=== PATIENT | female | born 1995 | race African-American/Black ===

== ENCOUNTER 2018-03-01 09:48 | Day surgery (SDC) | payer SELFPAY ==
[2018-02-27 16:02] VITALS: BMI 31.0
[2018-03-01] MEDS ORDERED: EPINEPHrine/PF 1 MG/1 ML (1:1,000) AMPULE ONE (09:52)
[2018-03-01] MEDS ORDERED: LIDOCAINE HCL 1%, 10 MG/ML (20ML VIAL) ONE (09:59)
[2018-03-01] MEDS ORDERED: BACITRACIN 15 GM TUBE TOPICAL OINTMENT ONE (09:59)
[2018-03-01] MEDS ORDERED: MIDAZOLAM HCL 2 MG/2 ML SINGLE DOSE VIAL ONE ×2 (10:50)
[2018-03-01] MEDS ORDERED: ROCURONIUM BROMIDE 50 MG/5 ML VIAL ONE (10:58)
[2018-03-01] MEDS ORDERED: PROPOFOL 20 ML ONE ×2 (10:58→12:46)
[2018-03-01] MEDS ORDERED: ceFAZolin 2 GRAM PREMIX BAG IVPB ONE (11:04)
[2018-03-01] MEDS ORDERED: LIDOCAINE 1%/EPI 1:100000 (50 ML MULTI DOSE VIAL) INF ONE (11:17)
--- NOTE | 2018-03-01 13:48 | OP ---
Operative Note - Note: Operative Date: 03/01/18 Pre-Operative Diagnosis: Breast Asymmetry Operation: Right Reduction Mammaplasty. Left cicumareolar lift and fat graft for symmetry Post-Operative Diagnosis: Same as Pre-op Surgeon: Andrew Ge Food And Drug Inspector: Garrick Odell Anesthesia: General Estimated Blood Loss (mls): 50 Drains & Tubes with Location: right Cheikh 15 Operative Report Dictated: Yes
[2018-03-01] MEDS ORDERED: ONDANSETRON 4 MG/2 ML VIAL IVPUSH PRN (13:59)
[2018-03-01] MEDS ORDERED: PROMETHAZINE HCL 25 MG/1 ML VIAL IVPUSH PRN (13:59)
[2018-03-01] MEDS ORDERED: oxyCODONE HCL 5 MG TABLET PO PRN (13:59)
[2018-03-01] MEDS ORDERED: LACTATED RINGERS SOLUTION 1,000 ML IV SCH (14:00)
[2018-03-01 17:23] VITALS: BP 111/67; PULSE 80; TEMP 98
--- NOTE | 2018-03-03 10:03 | OP ---
DATE OF OPERATION: 03/01/2018 SURGEON: Sharad Ge MD DIRECTOR [employer]S SURGEON: Garrick Odell PA-C PREOPERATIVE DIAGNOSES: 1. Bilateral breast asymmetry. 2. Tuberous breast deformity. 3. Chest wall asymmetry. POSTOPERATIVE DIAGNOSES: 1. Bilateral breast asymmetry. 2. Tuberous breast deformity. 3. Chest wall asymmetry. OPERATIVE PROCEDURE: 1. Right breast reduction mammoplasty. 2. Left breast circumareolar lift mastopexy with fat transfer for volume. OPERATIVE INDICATION: Patient is a 22-year-old black female who presents with significant asymmetry of the chest wall with the right breast being double-D cup size, ptotic with a large nipple-areolar complex and the left breast being significantly smaller, B cup, and a tuberous deformity with narrow base and large areolar complex. The risks and benefits of surgical versus nonsurgical alternatives as well as material complications of asymmetry correction with subcutaneous tissue transfer were discussed with the patient preoperatively. She elected not to have an implant for the left breast because of the asymmetries. The patient was marked in the standing position preoperatively with the knowledge of the incisions and subsequent scar possibilities. OPERATIVE PROCEDURE IN DETAIL: Patient was taken to the operating room and after induction of general anesthesia in the supine position both arms were extended and padded, Venodyne boots were placed and markings which were made in the standing position preoperatively were reconfirmed, remeasured and injected with 1% local lidocaine anesthesia after timeout and prepping and draping in the usual fashion. After topical anesthesia and hemostasis attention was turned to the right breast. At this point Taylor pattern incisions were carried out on the right breast in order to reduce the right breast in the usual fashion with inferior pedicle technique. Incisions and deepithelialization were carried out over the pedicle itself and then in the usual fashion for breast reduction the superior portions of the lateral, central and medial portions of the breast were excised. The reduction was carried out to a size C cup breast. Hemostasis was meticulously obtained throughout the space and copious irrigation of the wound was performed. At this point the pedicle was tacked into position using 2-0 Vicryl sutures down to the pectoralis fascia to centralize it and then the skin flaps were brought together in the usual fashion using 2-0 Vicryl suture on the deepest tissue, 3-0 PDS in a deep dermal fashion and 4-0 V-Loc suture in a running subcuticular fashion. The nipples re-inset using 3-0 PDS and running subcuticular suture with V-Loc. Good shape and contour and the C cup size were carried out. Attention was then turned to the opposite breast and the markings which had been made preoperatively. A circumareolar incision was carried out excising a ring of skin and deepithelialized. At this point the abdomen which had been prepped during the initial preparation was injected with 1% local lidocaine anesthesia and then a dilute epinephrine solution for infiltration was carried out. Suction-assisted lipectomy was then carried out over the abdomen and flanks in the usual fashion removing and preserving this into the [employer] apparatus in order to transfer subcutaneous fat. Approximately 300 mL of fat was harvested, washed, cleansed and prepared and then injected in 10-mL aliquots into the left breast, chest wall, deep into the subcutaneous tissue, the muscle area and all areas of the breast in order to enlarge and shape the breast to a better contour. At this point after filling the breast in the subcutaneous tissue the circumareolar mastopexy was carried out and showed good shape and contour and was closed with interrupted 3-0 PDS sutures in the deep layer and a running subcuticular suture with V-Loc circumferentially around the nipple-areolar complex. The patient was placed in the sitting position. Adequate symmetry was seen at this point and all wounds were closed with interrupted and running sutures. Dermabond and Steri-Strip dressings were placed over the wounds itself. The patient was dressed with a Surgi-bra over the fluff dressing, awakened, extubated and transferred to the recovery room in satisfactory condition. She tolerated the procedure well. SHARAD GE M.D. [id number]
--- NOTE | 2018-03-06 15:59 | PATH ---
Surgical Pathology Report Patient Name: MICKEY MOLINA [facility]. Rec. #: [id number] /Age/Gender: 1995 (Age: 22) / F Account: [id number] Location: [facility] SURGICAL Taken: 03/01/2018 Received: 03/03/2018 Reported: 03/06/2018 Physicians: Andrew Ge Specimen(s) Received RIGHT BREAST TISSUE Clinical History Cosmetic surgery for breast symmetry Final Diagnosis BREAST TISSUE, RIGHT, EXCISION: BREAST TISSUE SHOWING FOCAL CHRONIC INFLAMMATION WITH LYMPHOCYTIC INFILTRATE. SEGMENT OF SKIN WITH NO DIAGNOSTIC ABNORMALITIES. Electronically Signed Phillip Meng M.D. Gross Description Received in formalin labeled "right breast tissue," is a 480 g, 18.0 x 13.0 x 6.0 cm aggregate of unoriented portions of fibroadipose tissue and brown, unremarkable skin. Sectioning reveals multiple foci of white fibrous tissue. No definitive mass is identified. Parts Counter Salesperson sections are submitted in 3 cassettes. DL/03/03/2018 saudi/03/03/2018
== END 2018-03-01 17:15 | disposition home or self-care (01) ==
LOC: JASU-SURG 09:48
PROVIDERS: ATTEND Plastic Surgery
PROC: 0H0U0ZZ Alteration of Left Breast, Open Approach (ICD-10-PCS; 2018-03-01)
PROC: 0H0V0ZZ Alteration of Bilateral Breast, Open Approach (ICD-10-PCS; principal; 2018-03-01 10:00)
DX: N64.89 Other specified disorders of breast (principal); Q67.8 Other congenital deformities of chest
CPT/HCPCS: 84703; 88304-TC; 94760